=== PATIENT | female | born 1985 | race Two or more races ===

== ENCOUNTER 2022-01-07 14:24 | Inpatient (IN) | payer OTHER ==
[~2022-01-07] VITALS: Ht 157.5 cm; Wt 86.2 kg
[2022-01-07] MEDS ORDERED: NIFEDIPINE20 MG PO (16:41)
[2022-01-07] MEDS ORDERED: TERBUTALINE SU2.5 MG PO (16:41)
[2022-01-07] MEDS ORDERED: INTEGRA PLUS C1 EACH PO (16:42)
[2022-01-07] MEDS ORDERED: PRENATABS RX T1 EACH PO (16:42)
== END 2022-01-09 14:28 | disposition home or self-care (01) | DRG 833 ==
LOC: LDR 14:24
PROVIDERS: ADMIT Specialist; ATTEND Specialist
PROC: 4A1HXCZ Monitoring of Products of Conception, Cardiac Rate, External Approach (ICD-10-PCS; principal; 2022-01-07)
DX: O13.3 Gestational [pregnancy-induced] hypertension without significant proteinuria, third trimester (principal); Z3A.34 34 weeks gestation of pregnancy

== ENCOUNTER 2022-01-22 03:56 | Inpatient (IN) | payer OTHER ==
[~2022-01-22] VITALS: Ht 154.9 cm; Wt 87.5 kg
[~2022-01-22 03:56] MED LIST: INTEGRA PLUS C1 EACH PO; NIFEDIPINE20 MG PO; PRENATABS RX T1 EACH PO; TERBUTALINE SU2.5 MG PO
== END 2022-01-24 14:14 | disposition home or self-care (01) | DRG 788 ==
LOC: LDR 03:56 → O/R 08:26 → OB/GYN 11:14
PROVIDERS: ADMIT Specialist; ATTEND Specialist
PROC: 4A1HXCZ Monitoring of Products of Conception, Cardiac Rate, External Approach (ICD-10-PCS; 2022-01-22)
PROC: 10D00Z1 Extraction of Products of Conception, Low, Open Approach (ICD-10-PCS; principal; 2022-01-22 07:30)
DX: O32.2XX0 Maternal care for transverse and oblique lie, not applicable or unspecified (principal); Z3A.37 37 weeks gestation of pregnancy; Z37.0 Single live birth; Z20.822 Contact with and (suspected) exposure to COVID-19

== ENCOUNTER 2022-05-08 11:19 | Emergency (ER) | payer OTHER ==
[~2022-05-08] VITALS: Ht 152.4 cm; Wt 54.4 kg
[2022-05-08] MEDS ORDERED: CLONAZEPAM0.125 MG PO (12:38)
[2022-05-08] MEDS ORDERED: DIOVAN40 MG PO (12:38)
== END 2022-05-08 21:43 | disposition home or self-care (01) ==
LOC: ER 11:19
DX: N39.0 Urinary tract infection, site not specified (principal); F41.9 Anxiety disorder, unspecified; Z20.822 Contact with and (suspected) exposure to COVID-19; Z91.013 Allergy to seafood